=== PATIENT | female | born 1955 | race Caucasian/White ===

== ENCOUNTER 2017-01-30 12:16 | Day surgery (SDC) | payer BC ==
[2017-01-30] MEDS ORDERED: LIDOCAINE 2% MDV (20MG/ML) 20ML VIAL IV ONE (14:00)
[2017-01-30] MEDS ORDERED: PROPOFOL 10 MG/ML VIAL IV ONE (14:00)
--- NOTE | 2017-02-01 12:10 | Operative Note ---
DATE OF SURGERY: 01/30/2017 OPERATION: COLONOSCOPY to the cecum with cold biopsy forceps polypectomy. INDICATION: Colorectal cancer screening. ANESTHESIA: Intravenous sedation was administered by the department of anesthesiology and included Diprivan titrated to effect. PROCEDURE: Following informed consent from this alert individual including a discussion of the risks and benefits of the procedure and an opportunity for the patient to ask questions, the patient was in the left lateral decubitus position. A digital rectal examination was performed. No abnormalities were noted. Following this, the Olympus [id number] video colonoscope was inserted into the rectum without resistance. The rectal mucosa had a normal appearance with normal folds and distensibility. The colonoscope was advanced up through the bowel to the level of the cecum without much difficulty. Throughout the bowel the mucosa appeared normal, the folds were normal, and the bowel was fairly well distensible. The cecum was defined by noting the appendiceal orifice and ileocecal valve. The colon preparation was good. From the base of the cecum, the colonoscope was then slowly withdrawn back through the bowel, reexamining the mucosa upon withdrawal. The right colon and transverse colon were endoscopically normal. Descending colon likewise was free from changes. At the proximal sigmoid colon, there was a solitary diverticulum noted. In the rectum, there was a diminutive 3 mm polyp noted which was removed with biopsy forceps. Retroflexion in the rectum was endoscopically normal. The endoscope was straightened and withdrawn. The patient tolerated the procedure well and was returned to the recovery area in stable condition. IMPRESSION: 1. Solitary diverticulum noted in the sigmoid colon. 2. Small 3 mm polyp removed from the rectum. RECOMMENDATIONS: Further recommendations will be forthcoming pending results of pathology obtained today. Followup will also be Dr. Celina Armendariz. As always, thank you for allowing me to participate in the care of your patient. Abad Elder DO CC: Dr. Marcello PENA
== END 2017-01-30 13:35 | disposition home or self-care (01) ==
LOC: HOP 12:16
PROVIDERS: ATTEND Internal Medicine Gastroenterology
DX: Z12.11 Encounter for screening for malignant neoplasm of colon (principal); K62.1 Rectal polyp